=== PATIENT | female | born 1985 | race African-American/Black ===

== ENCOUNTER 2022-06-12 12:02 | Day surgery (SDC) | payer OTHER ==
[~2022-06-12 12:02] MED LIST: ACETAMINOPHEN 500 MG TABLET PO ONE; CELECOXIB 100 MG CAPSULE PO ONE; GABAPENTIN 400 MG CAPSULE ONE
[2022-06-12] MEDS ORDERED: LACTATED RINGERS 1,000 ML IV ONE ×2 (12:20→16:40)
--- NOTE | 2022-06-12 12:55 | ANESTHESIA ---
Pre-Anesthesia VS, & Labs - Diagnosis B CTS - Procedure B CTR Vital Signs: Temp Pulse Resp BP Pulse Ox 36.9 C 106 H 13 126/84 H 99 06/12/22 12:21 06/12/22 12:21 06/12/22 12:21 06/12/22 12:21 06/12/22 12:21 Height: 5 ft 2 in Weight (kg): 70.1 kg Body Mass Index: 28.3 BMI Classification: Overweight - NPO >8 hours - Is Patient ?: No - Lab Results Current Lab Results: Laboratory Tests 06/12/22 12:37: POC Whole Bld Glucose 97 Lab results reviewed: Yes Home Medications and Allergies Home Medications: Ambulatory Orders Amitriptyline [Elavil] 25 mg PO DAILY 06/03/22 Dextroamphetamine/Amphetamine [Adderall 20 mg Tablet] 20 mg PO DAILY 06/03/22 Gabapentin [Neurontin] 100 mg PO BID 06/03/22 Ibuprofen [Motrin] 600 mg PO Q6H PRN 06/03/22 Sertraline HCl 100 mg PO DAILY 06/03/22 Amitriptyline [Elavil] 25 mg PO DAILY 06/03/22 Dextroamphetamine/Amphetamine [Adderall 20 mg Tablet] 20 mg PO DAILY 06/03/22 Gabapentin [Neurontin] 100 mg PO BID 06/03/22 Ibuprofen [Motrin] 600 mg PO Q6H PRN 06/03/22 Sertraline HCl 100 mg PO DAILY 06/03/22 Allergies/Adverse Reactions: Allergies Allergy/AdvReac Type Severity Reaction Status Date / Time No Known Drug Allergies Allergy Verified 06/12/22 12:12 Anes History & Medical History - Anesthetic History Anesthesia Complications: reports: No previous complications Family history of Anesthesia Complications: Denies Family history of Malignant Hyperthermia: Denies - Medical History Cardiovascular: reports: None, Other (syays heart can feel like its beating fast occasionally, NSR, reg rate to auscultation) Pulmonary: reports: None, Asthma Gastrointestinal: reports: None Urinary: reports: None Musculoskeletal: reports: None Endocrine/Autoimmune: reports: None Skin: reports: None History of Cancer?: No - Surgical History Gynecologic: reports: section, 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, Other Orthopedic: reports: Other Exam General: Alert, Oriented x3, Cooperative Dental: WNL Mouth Openin Fingerbreadth Neck Mobility: Normal Mallampati classification: II Thyromental Distance: 4-6 cm Respiratory: Lungs clear, Normal breath sounds, No respiratory distress Cardiovascular: Regular rate Neurological: Normal speech, Other (numbness tingling to B UE fingers/hands r/t CTS) Mental/Cognitive Status: Alert/Oriented X3, Normal for patient Cognitive Status: Within normal limits Plan Anesthesia Type: General Consent for Procedure(s) Verified and Reviewed: Yes Code Status: Attempt Resuscitation ASA classification: 2-Mild systemic disease Is this case an emergency?: No
[2022-06-12] MEDS ORDERED: ePHEDrine 50 MG/ML VIAL IVP PRN (12:56)
[2022-06-12] MEDS ORDERED: HYDROmorphone 0.5 MG/0.5 ML SYRINGE IVP PRN (12:56)
[2022-06-12] MEDS ORDERED: NALOXONE 0.4 MG/ML VIAL IVP PRN (12:56)
[2022-06-12] MEDS ORDERED: ATROPINE ABBOJECT 1 MG/10 ML SYRINGE IVP PRN (12:56)
[2022-06-12] MEDS ORDERED: ONDANSETRON 4 MG/2 ML VIAL IVP PRN (12:56)
[2022-06-12] MEDS ORDERED: fentaNYL 100 MCG/2 ML VIAL IVP PRN (12:56)
[2022-06-12] MEDS ORDERED: MORPHINE 2 MG/ML CARPUJECT IVP PRN (12:56)
[2022-06-12] MEDS ORDERED: METOCLOPRAMIDE 10 MG/2 ML VIAL IVP PRN (12:56)
[2022-06-12] MEDS ORDERED: LACTATED RINGERS 1,000 ML IV SCH (13:00)
[2022-06-12] MEDS ORDERED: MIDAZOLAM 2 MG/2 ML VIAL ONE (13:14)
[2022-06-12] MEDS ORDERED: LIDOCAINE 2%-EPI 1:100000 20 ML MDV ONE ×2 (13:41→13:59)
[2022-06-12] MEDS ORDERED: BUPIVACAINE 0.25% PF 10 ML VIAL SUBQ ONE ×2 (13:44)
[2022-06-12] MEDS ORDERED: BUPIVACAINE 0.25% PF 10 ML VIAL ONE ×2 (13:44→13:59)
[2022-06-12] MEDS ORDERED: LIDOCAINE 1%-EPI 1:100000 20 ML MDV SUBQ ONE ×2 (13:48)
--- NOTE | 2022-06-12 15:02 | OPERATIVE REPORT ---
Operative Report - General Procedure Date: 06/12/22 Planned Procedure: Bilateral carpal tunnel releases Pre-Op Diagnosis: Bilateral carpal tunnel syndrome Procedure Performed: Bilateral carpal tunnel releases Post Op Diagnosis: Same as preop diagnosis - Procedure Note Primary Surgeon: Bryce Ford MD Secondary Surgeon: Lincoln Jara PAC Anesthesia Provider: Bob Zhou CRNA Anesthesia Technique: General LMA, Regional block Estimated Blood Loss (mL): 5 Indications: This is a 36-year-old woman with bilateral hand numbness in the median nerve distribution refractory to conservative treatment over prolonged period of time as has been documented in the clinic. She had positive findings on exam and positive electrodiagnostic studies consistent with bilateral carpal tunnel syndrome. She had good motion to her wrist and fingers. Findings: There was a nonspecific tenosynovitis about the median nerve at the median nerve looked grossly normal. Complications: None - Other Other Information/Narrative: The patient was brought to the operating room and placed in a supine position. The Right arm was placed in a arm extension table. A pneumatic tourniquet had been applied to the proximal Right arm over cast padding. The Right upper extremity was prepped and draped in a sterile manner in the usual fashion. A timeout procedure was performed by the entire operating room team and all were in agreement. Local anesthesia was utilized. A 50-50 mixture of 2% lidocaine with epinephrine and quarter percent Marcaine was injected with a 25-gauge inch and a half needle placed proximal to the wrist flexor crease and ulnar to the palmaris longus. About half of the 10 cc was placed in the carpal tunnel and the additional 5 cc was placed subcutaneously in line with the incision.. A longitudinal incision was made in line with the third webspace. The incision began just distal to the wrist flexor crease and extended for 2.5 cm. The subcutaneous tissue and palmar aponeurosis were divided in line with the incision. The transverse carpal ligament was identified proximally and was incised. A blunt obturator was inserted beneath the transverse carpal ligament. The transverse carpal ligament was then divided from proximal to distal under direct visualization. The transverse carpal ligament was divided proximally with blunt tip scissors to achieve a full release of the carpal tunnel. The median nerve was inspected. The wound was irrigated. The skin was closed with interrupted 4-0 nylon vertical mattress suture. A bulky hand dressing was applied to the Right hand and wrist with mild compression. A pneumatic tourniquet was not utilized during the procedure. Hemostasis was achieved with letter cautery. The patient tolerated procedure well. The exact same procedure was performed to the left wrist as described for the right side. Patient tolerated both procedure well and timeout procedures were performed for each procedure. No tourniquet was utilized for either procedure. A physician evaluation assistant was utilized to protect vital structures, provide exposure, wound closure and dressing.
[2022-06-12] MEDS ORDERED: oxyCODONE 5 MG TABLET PO PRN (15:19)
[2022-06-12] MEDS ORDERED: LACTATED RINGERS 50 ML IV ONE (15:42)
[2022-06-12] MEDS ORDERED: ONDANSETRON 4 MG/2 ML VIAL IVP SCH (16:00)
--- NOTE | 2022-06-12 16:03 | ANESTHESIA POST OP EVALUATION ---
Anesthesia Post Eval - Post Anesthesia Eval Vitals: Last Vital Signs Temp 36.4 C L 06/12/22 15:44 Pulse 98 06/12/22 15:44 Resp 24 06/12/22 15:44 BP 135/74 H 06/12/22 15:44 Pulse Ox 100 06/12/22 15:44 CV Function Including HR & BP: Stable Pain Control: Satisfactory Nausea & Vomiting: Negative Mental Status: Baseline Respiratory Status: Airway Patent Hydration Status: Satisfactory Anesthesia Complications: None
[2022-06-12 16:23] VITALS: BP 135/83
== END 2022-06-12 12:03 | disposition home or self-care (01) ==
LOC: SDS 12:02
PROVIDERS: ATTEND Orthopaedic Surgery
DX: G56.03 Carpal tunnel syndrome, bilateral upper limbs (principal); J45.909 Unspecified asthma, uncomplicated
CPT/HCPCS: 64721; A9270; J7120

== ENCOUNTER 2022-08-21 01:34 | Emergency (ER) | payer OTHER ==
[2022-08-21] MEDS ORDERED: SODIUM CHLORIDE 0.9% 1,000 ML IV STA (01:43)
[2022-08-21 02:08] LABS: BASOPHILS # (AUTO) 0.1 10^3/uL (0.0-0.1); BASOPHILS % (AUTO) 0.7 %; EOSINOPHILS % (AUTO) 0.4 %; HCT - HEMATOCRIT 36.8 % (37.0-47.0); LYMPHOCYTES % (AUTO) 25.9 %; MEAN CORPUSCULAR HEMOGLOBIN 29.4 pg (27.0-31.0); MEAN CORPUSCULAR HGB CONC 32.6 g/dL (32.0-36.0); MEAN CORPUSCULAR VOLUME 90.2 fL (81.0-99.0); MEAN PLATELET VOLUME 10.7 fL (7.9-10.8); MONOCYTES # (AUTO) 0.5 10^3/uL (0.0-1.0); MONOCYTES % (AUTO) 7.1 %; NEUTROPHILS % (AUTO) 65.8 %; PLT - PLATELET COUNT 388 10^3/uL (130-450); RED BLOOD COUNT 4.08 10^6/uL (4.20-5.40); RED CELL DISTRIBUTION WIDTH 11.1 % (12.0-15.0); WHITE BLOOD COUNT 7.6 x10^3/uL (4.8-10.8)
--- NOTE | 2022-08-21 02:14 | ED Physician Documentation ---
History of Present Illness - Stated complaint Stated Complaint: LETHARGIC - Chief complaint Chief Complaint: General - History obtained from History obtained from: EMS - History of Present Illness Timing: Prior to arrival - Additonal information Additional information: 37-year-old female with history of anxiety and depression presents by EMS from her home for "lethargy" since 9 PM tonight. Patient states that she feels fatigued, tingling in her legs, and "out of it". Vital signs were unremarkable by EMS, Accu-Chek 83. On arrival patient is mumbling, will not open her eyes, but is holding her phone in her hands. Patient was able to say "I had a migraine earlier today", but mumbles "no" when asked if she still has a migraine. Poorly cooperative with efforts to remove clothes to place into ED gown. 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, Other - Present Medications Home Medications: Ambulatory Orders Medication Instructions Recorded Confirmed Amitriptyline [Elavil] 25 mg PO DAILY 06/03/22 08/21/22 Dextroamphetamine/Amphetamine 20 mg PO DAILY 06/03/22 08/21/22 [Adderall 20 mg Tablet] Gabapentin [Neurontin] 100 mg PO BID 06/03/22 08/21/22 Ibuprofen [Motrin] 600 mg PO Q6H PRN 06/03/22 08/21/22 Sertraline HCl 100 mg PO DAILY 06/03/22 08/21/22 oxyCODONE [Roxicodone] 5 mg PO Q4-6H #6 tablet 06/12/22 08/21/22 - Allergies Allergies/Adverse Reactions: Allergies Allergy/AdvReac Type Severity Reaction Status Date / Time No Known Drug Allergies Allergy Verified 08/21/22 01:45 - Social History Does the pt smoke?: No Smoking Status: Never smoker Does the pt drink ETOH?: Yes Does the pt have substance abuse?: No - Immunizations Immunizations are current?: Yes Results - Vitals Vitals: Vital Signs - 24 hr 08/21/22 08/21/22 08/21/22 01:42 01:54 02:24 Temperature 36.8 C Heart Rate 79 69 63 Respiratory 14 17 16 Rate Blood Pressure 135/81 H 118/77 O2 Saturation 100 95 08/21/22 08/21/22 04:00 05:05 Temperature 36.6 C 36.6 C Heart Rate 79 60 Respiratory 17 18 Rate Blood Pressure 121/77 116/71 O2 Saturation 99 99 Oxygen O2 Source Room air - EKG (time done) 0203 Rate: Rate (enter#) (72) Rhythm: NSR [place]: Normal Intervals: Normal [place] QRS: Normal Ischemia: Normal ST segments - Labs Labs: Laboratory Tests 08/21/22 08/21/22 01:55 01:55 WBC 7.6 RBC 4.08 L Hgb 12.0 Hct 36.8 L MCV 90.2 MCH 29.4 MCHC 32.6 RDW 11.1 L Plt Count 388 MPV 10.7 Neut # (Auto) 5.0 Lymph # (Auto) 2.0 [place] # (Auto) 0.5 Eos # (Auto) 0.0 Baso # (Auto) 0.1 Absolute Nucleated RBC 0.00 Nucleated RBC % 0.0 Sodium 135 Potassium 3.7 Chloride 102 Carbon Dioxide 25 Anion Gap 8.0 BUN 12 Creatinine 0.7 Estimated GFR (MDRD) 115 Glucose 110 H Calcium 9.2 Total Bilirubin 0.8 AST 20 ALT 19 Alkaline Phosphatase 98 Total Protein 8.2 Albumin 4.1 Globulin 4.1 Albumin/Globulin Ratio 1.0 Lipase 27 PD MEDICAL DECISION MAKING - ED course Complexity details: reviewed results, re-evaluated patient, considered differential, d/w patient, d/w family ED course: Nontoxic-appearing patient presenting for "lethargy" at 9:00pm. Moves all extremities, however is minimally cooperative with history taking and with efforts to remove clothes to place into ED gown, patient keeps her eyes closed throughout all questioning. No obvious physical exam abnormalities. Labs and imaging will be obtained. Patient has received IV fluids, reglan, benadryl. Patient has arrived at bedside. Labs and imaging are unremarkable, this was discussed with the patient's . He states that he was on FaceTime with the patient when she stated that she seemed "out of it". She told him that she could hear her eyelids blinking and said that she felt "not in her body". No obvious explanation for the patient's symptoms. I counseled PCP follow-up with the patient's . Departure - Departure Disposition: 01 Home, Self Care Clinical Impression: Lethargy Condition: Stable Instructions: Fatigue Manage
[2022-08-21 02:17] LABS: ALBUMIN 4.1 g/dL (3.2-5.5); BILIRUBIN,TOTAL 0.8 mg/dL (0.2-1.0); CALCIUM 9.2 mg/dL (8.5-10.3); CREATININE 0.7 mg/dL (0.4-1.0); POTASSIUM 3.7 mmol/L (3.5-5.0); TOTAL PROTEIN 8.2 g/dL (6.7-8.2)
[2022-08-21] MEDS ORDERED: METOCLOPRAMIDE 10 MG/2 ML VIAL IVP STA (04:06)
[2022-08-21] MEDS ORDERED: diphenhydrAMINE INJ 50 MG/ML VIAL IVP STA (04:06)
[2022-08-21 05:07] VITALS: BP 116/71
--- OUTSIDE RECORDS SUMMARY | 2022-08-21 05:15 | EXTERNAL MEDICAL SUMMARY RPT | Continuity of Care Document ---
:1985 Author Organization [facility] Address [address] [place] [address] Phone Allergies No information. Encounters No information. Functional Status No information. Immunizations No information. Medications date description facility [id number] dextroamphetamine-amphetamine All [id number]+0000 dextroamphetamine-amphetamine All Problems No information. Procedures No information. Results/Labs No information. Social History date description facility [id number] Never smoker All Vital Signs date measurement value units [id number]+0000 BMI BMI 28.86 kg/m2 28508258668827+0000 BP_diastolic BP_diastolic 93 mm[H g] 65303410045530+0000 BP_systolic BP_systolic 137 mm[Hg] 26149224327971+0000 heart_rate heart_rate 104 /min 51606662412734+0000 height_metric height_metric 157.48 cm [id number]+0000 height_standard height_standard 62 in 30980327039250+0000 respiration_rate respiration_rate 14 /min 16618197267419+0000 temperature_metric temperature_metric 36.44 C 12899444931965+0000 temperature_standard temperature_standard 9 7.6 F 95234106502677+0000 weight_metric weight_metric 71.3 kg [id number]+0000 weight_standard weight_standard 157.2 lb
[2022-08-21] MEDS ORDERED: ONDANSETRON ODT 4 MG Prepack 2 TL PRN (05:20)
--- NOTE | 2022-08-21 07:34 | CT Report ---
PROCEDURE: HEAD WO INDICATIONS: LETHARGY, MIGRAINE TODAY TECHNIQUE: Noncontrast 4.5 mm thick angled axial sections acquired from the foramen magnum to the vertex. For r adiation dose reduction, the following was used: automated exposure control, adjustment of mA and/or kV according to patient size. COMPARISON: None. FINDINGS: Image quality: There is streak artifact seen through the skull base. CSF spaces: Basal cisterns are patent. No extra-axial fluid collections. Ventricles are normal in size and shape. Brain: No midline shift. No intracranial masses or hemorrhage. [place]-white matter interface is norm al. Skull and face: Calvarium and visualized facial bones are intact, without suspicious lesions. Sinuses: Visualized sinuses and mastoids are clear. IMPRESSION: Normal noncontrast head CT, without a cause of the patient's presenting symptoms identif ied. Note: No significant discrepancy from the preliminary report. Reviewed by: Angel oStelo MD on 08/21/2022 6:32 AM PENNY Approved by: Angel Sotelo MD on 08/21/2022 6:32 AM MOCHELSIE Station ID: [id number]
== END 2022-08-21 05:23 | disposition home or self-care (01) ==
LOC: EDUNIT# → ED 01:34
DX: R53.83 Other fatigue (principal); R51.9 Headache, unspecified; R20.2 Paresthesia of skin
CPT/HCPCS: 36415; 70450; 80053; 83690; 85025; 93005; 96374; 96375; 99281; 99284; J1200; J2765

== ENCOUNTER 2022-09-30 10:07 | Emergency (ER) | payer OTHER ==
[2022-09-30 10:15] VITALS: BP 143/75
--- NOTE | 2022-09-30 12:51 | XRAY Report ---
PROCEDURE: Chest 1 View X-Ray INDICATIONS: cough/dyspnea TECHNIQUE: One view of the chest was acquired. COMPARISON: None. FINDINGS: Surgical changes and devices: None. Lungs and pleura: No pleural effusions or pneumothorax. Lungs are clear. Mediastinum: Mediastinal contours appear normal. Heart size is normal. Bones and chest wall: No suspicious bony lesions. Overlying soft tissues appear unremarkable. IMPRESSION: No acute radiographic abnormality. Reviewed by: Rayo Vasquez MD on 09/30/2022 12:50 PM PST Approved by: Rayo Vasquez MD on 09/30/2022 12:50 PM [facility] Station ID: [id number]
[2022-09-30] MEDS ORDERED: predniSONE 20 MG TABLET PO STA (14:08)
--- NOTE | 2022-09-30 14:12 | ED Physician Documentation ---
PD HPI URI - Stated complaint Stated Complaint: SOA - Chief complaint Chief Complaint: Resp - History obtained from History obtained from: Patient - History of Present Illness Timing - onset: How many days ago (4) Timing duration: Days (4) Timing details: Gradual onset Pain level max: 0 Pain level now: 0 Associated symptoms: Nasal congestion, Rhinorrhea, Dry cough, Dyspnea. No: Fever Contributing factors: Sick contact, COPD / asthma Improves by: Rest, MDI/nebulizer (albuterol) Worsened by: Activity, Breathing Review of Systems Ten Systems: 10 systems reviewed and negative Constitutional: denies: Fever, Chills Nose: reports: Rhinorrhea / runny nose, Congestion Respiratory: reports: Dyspnea GI: denies: Abdominal Pain, Nausea, Vomiting, Diarrhea Skin: denies: Rash Musculoskeletal: denies: Neck pain, Back pain Neurologic: denies: Headache PD PAST MEDICAL HISTORY - Past Medical History Cardiovascular: None, Other Respiratory: None, Asthma Neuro: Migraines Endocrine/Autoimmune: None GI: None : None HEENT: None Psych: Depression, Anxiety, Panic attacks Musculoskeletal: None Derm: None - Past Surgical History Past Surgical History: Yes 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, 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, Other - Present Medications Home Medications: Ambulatory Orders Medication Instructions Recorded Confirmed Amitriptyline [Elavil] 25 mg PO DAILY 06/03/22 08/21/22 Dextroamphetamine/Amphetamine 20 mg PO DAILY 06/03/22 08/21/22 [Adderall 20 mg Tablet] Gabapentin [Neurontin] 100 mg PO BID 06/03/22 08/21/22 Ibuprofen [Motrin] 600 mg PO Q6H PRN 06/03/22 08/21/22 Sertraline HCl 100 mg PO DAILY 06/03/22 08/21/22 oxyCODONE [Roxicodone] 5 mg PO Q4-6H #6 tablet 06/12/22 08/21/22 Benzonatate [Tessalon] 200 mg PO TID PRN #30 cap 09/30/22 predniSONE [Deltasone] 40 mg PO DAILY #10 tablet 09/30/22 - Allergies Allergies/Adverse Reactions: Allergies Allergy/AdvReac Type Severity Reaction Status Date / Time No Known Drug Allergies Allergy Verified 08/21/22 01:45 - Social History Does the pt smoke?: No Smoking Status: Never smoker Does the pt drink ETOH?: Yes Does the pt have substance abuse?: No - Immunizations Immunizations are current?: Yes PD ED PE NORMAL - Vitals Vital signs reviewed: Yes - General General: Alert and oriented X 3, No acute distress - HEENT HEENT: Moist mucous membranes, Pharynx benign - Neck Neck: Supple, no meningeal sign - Cardiac Cardiac: RRR - Respiratory Respiratory: No respiratory distress, Other (mild wheeze) - Abdomen Abdomen: Soft, Non tender, Non distended - Derm Derm: Warm and dry - Neuro Neuro: Alert and oriented X 3 Results - Vitals Vitals: Vital Signs - 24 hr 09/30/22 10:12 Temperature 36.7 C Heart Rate 95 Respiratory 26 H Rate Blood Pressure 143/75 H O2 Saturation 100 Oxygen O2 Source Room air - Rads (name of study) cxr Radiology: Final report received, EMP read contemporaneously, See rad report (no acute abnormalities) PD MEDICAL DECISION MAKING - ED course Complexity details: reviewed results, re-evaluated patient, considered differential, d/w patient ED course: Patient is well-appearing, nontoxic. Afebrile. No hypoxia. She was given a spacer to use with her inhaler and instructed on its use. Feels better. Will prescribe steroids for home as well. Will prescribe Tessalon for cough. Appears to be a viral URI. No pneumonia on chest x-ray. Patient counseled regarding signs and symptoms for which I believe and urgent re-evaluation would be necessary. Patient with good understanding of and agreement to plan and is comfortable going home at this time This document was made in part using voice recognition software. While efforts are made to proofread this document, sound alike and grammatical errors may occur. Departure - Departure Disposition: 01 Home, Self Care Clinical Impression: Viral URI Condition: Good Instructions: ED URI Viral Follow-Up: TRESA BOOTHE MD [Primary Care Provider] - Within 1 week Prescriptions: predniSONE [Deltasone] 40 mg PO DAILY #10 tablet Benzonatate [Tessalon] 200 mg PO TID PRN #30 cap PRN Reason: Cough Comments: Please follow up with your doctor for further care. Drink plenty of fluids and rest. Return if you worsen. Your prescriptions were sent to the [facility]
[2022-09-30 15:09] LABS: B. PARAPERTUSSIS- RESP PCR PAN NOT DETECTED; B. PERTUSSIS- RESP PCR PANEL NOT DETECTED; C. PNEUMONIAE- RESP PCR PANEL NOT DETECTED; CORONAVIRUS 229E-RESP PCR NOT DETECTED; CORONAVIRUS HKU1-RESP PCR NOT DETECTED; CORONAVIRUS NL63-RESP PCR NOT DETECTED; CORONAVIRUS OC43-RESP PCR NOT DETECTED; HUMAN METAPNEUMOVIRUS NOT DETECTED; INFLUENZA A- RESP PCR PANEL NOT DETECTED; INFLUENZA B - RESP PCR PANEL NOT DETECTED; M. PNEUMONIAE- RESP PCR PANEL NOT DETECTED; PARAINFLUENZA VIRUS 1 NOT DETECTED; PARAINFLUENZA VIRUS 2 NOT DETECTED; PARAINFLUENZA VIRUS 3 NOT DETECTED; PARAINFLUENZA VIRUS 4 NOT DETECTED; RHINOVIRUS/ENTEROVIRUS NOT DETECTED; RSV- RESP PCR PANEL NOT DETECTED; SARS-CoV-2 -RESP PCR PANEL NOT DETECTED
== END 2022-09-30 14:25 | disposition home or self-care (01) ==
LOC: ED 10:07
DX: J06.9 Acute upper respiratory infection, unspecified (principal); B97.89 Other viral agents as the cause of diseases classified elsewhere
CPT/HCPCS: 71045; 87633; 99282; 99284; J7512

== ENCOUNTER 2023-12-23 09:31 | Emergency (ER) | payer OTHER ==
[2023-12-23 09:47] VITALS: O2SAT 98
--- NOTE | 2023-12-23 10:27 | ED Physician Documentation ---
PD HPI LOWER EXT INJURY - Stated complaint Stated Complaint: RT FT PX/SWELLING - Chief complaint Chief Complaint: Ext Problem - History obtained from History obtained from: Patient - History of Present Illness PD HPI LOW EXT INJURY LOCATION: Right, Foot Type of injury: Laceration Timing - onset: How many weeks ago (2) Timing - duration: Weeks Timing - details: Abrupt onset (dropped glass near her foot and it jabbed foot when broke, causing lac to foot.), Still present (had laceration of foot 2 weeks ago with pain on walking and lifting foot. Had pop feeling of the area with increased pain and swelling yesterday. Pain and weakness for lifting foot up and feeling numbness little toe. Told to come to ER. 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, Other - Present Medications Home Medications: Ambulatory Orders Medication Instructions Recorded Confirmed Dextroamphetamine/Amphetamine 20 mg PO DAILY 06/03/22 12/23/23 [Adderall 20 mg Tablet] Sertraline HCl 100 mg PO DAILY 06/03/22 12/23/23 Albuterol Sulf [Ventolin Hfa 1 - 2 puffs INH Q4HR PRN 12/23/23 12/23/23 Inhaler] Celecoxib 100 mg PO BID 12/23/23 12/23/23 amLODIPine [Norvasc] 5 mg PO DAILY 12/23/23 12/23/23 - Allergies Allergies/Adverse Reactions: Allergies Allergy/AdvReac Type Severity Reaction Status Date / Time No Known Drug Allergies Allergy Verified 12/23/23 09:38 - Social History Does the pt smoke?: No Smoking Status: Never smoker Does the pt drink ETOH?: Yes Does the pt have substance abuse?: No - Immunizations Immunizations are current?: Yes PD ED PE NORMAL - Vitals Vital signs reviewed: Yes - General General: Alert and oriented X 3, No acute distress, Well developed/nourished - Derm Derm: Normal color, Warm and dry - Extremities Extremities: Other (dorsolateral proximal right foot with small 1 cm laceration that is healing without signs of infection. No drainage. Wound healing well. There is swelling underneath the lac. Tender of it with palpation. Weakness for dorsiflexion of the foot and causes pain. Weak for dorsiflexion of the little toe s) - Neuro Neuro: Alert and oriented X 3, Normal speech Results - Vitals Vitals: Oxygen O2 Source Room air PD Medical Decision Making - ED course Complexity details: reviewed results, considered differential (had lac to top of foot. Consider partial tendon injury which gave completely with the current symptoms how it manifests. The location would be unusual to cause weakness for flexion of the ankle aside from the pain limiting it, but could be tendon to the little toe. ), d/w patient, d/w managed security sales consultant (Dr. Panda, ortho, who will follow up on pt in about a week with splint and less use to decrease pain/swelling and then reassess. ) Departure - Departure Disposition: 01 Home, Self Care Clinical Impression: Injury of tendon of foot Condition: Stable Record reviewed to determine appropriate education?: Yes Follow-Up: TRESA BOOTHE MD [Primary Care Provider] - Oscar Panad MD [Provider Admit Priv/Credential] - [facility] [Provider Group] Comments: I talked with our orthopedist on-call. They would like to see you in the office after a little bit more time with splint for the ankle and reducing weightbearing to allow for decreased inflammation and more healing. If there is a tendon injury, it most likely at that location would be just to the little toe or such. It would be uncommon to affect the tendon in that spot that would also cause the and it vision or weakness for lifting the foot. It may be the pain and inflammation of the injury inhibiting the muscle response. Will give you an ankle brace to use when up and around and to help support the foot from being down. This will allow better approximation of the presumed tendon injury. Crutches for partial to no weightbearing over the next several days to week. Call the orthopedic office today for a follow-up appointment for about a week. Meanwhile continue with some anti-inflammatories such as ibuprofen 2 or 3 times daily. If there is persistent weakness still at that time, they can discuss exploration and potential tendon repair. It does not need to be done in immediately. Forms: PCP List, Activity restrictions Discharge Date/Time: 12/23/23 12:17
[2023-12-23 12:26] VITALS: BP 135/93
== END 2023-12-23 12:17 | disposition home or self-care (01) ==
LOC: ED 09:31
DX: S91.311D Laceration without foreign body, right foot, subsequent encounter (principal); W25.XXXD Contact with sharp glass, subsequent encounter; S96.901A Unspecified injury of unspecified muscle and tendon at ankle and foot level, right foot, initial encounter; W25.XXXA Contact with sharp glass, initial encounter
CPT/HCPCS: 99283